=== PATIENT | female | born 1995 | race Caucasian/White ===

== ENCOUNTER → 2020-07-02 07:09 | Outpatient (CLI) | payer OTHER, SELFPAY ==
--- NOTE | 2020-07-02 07:12 | DI.US.S_ITS ---
PROCEDURE: US PELVIC COMPLETE INDICATIONS: ovarian cyst TECHNIQUE: Real-time scanning was performed of the pelvic organs, with image documentation. Additional endovaginal scanning was necessary due to incomplete visualization of the adnexal and endometrial structures by transabdominal scanning. COMPARISON: No prior studies are available for review at the time of this dictation. FINDINGS: Uterus: Uterus is normal in size at 7.9 x 3.6 x 4.8 cm. The endometrium measures 3 mm in combined thickness. Ovaries: The right ovary measures 3.2 x 2.3 x 2.2 cm and demonstrates a complex cyst that measures up to 1.9 cm. The left ovary measures 2.2 x 2 x 1.7 cm. The ovaries otherwise have a normal sonographic appearance. No adnexal masses are seen. Other: No pathologic free abdominal or pelvic fluid. IMPRESSION: 1.9 cm complex cyst seen involving the right ovary, which likely relates to resolving hemorrhagic cyst. At clinical discretion, a followup pelvic ultrasound could be considered in 6 weeks to assure resolution/ improvement. Dictated by: Misha Sloan M.D. on 07/02/2020 at 9:40 Approved by: Misha Sloan M.D. on 07/02/2020 at 9:41
[2020-07-02 10:00] LABS: Add Manual Diff / Slide Review NO; Basophils Absolute Auto 0 /uL (0-100); Basophils Percent Auto 0.7 % (0-2); Eosinophils Absolute Auto 100 /uL (0-450); Hematocrit 35.9 % (36-46); Hemoglobin 12.2 g/dL (12.0-16.0); Lymphocytes Absolute Auto 1100 /uL (1100-4500); Lymphocytes Percent Auto 34.9 % (25-40); Mean Corpuscular HGB Conc 33.9 % (30-36); Mean Corpuscular Hemoglobin 28.4 PG (26-34); Mean Corpuscular Volume 83.7 fL (80-100); Monocytes Absolute Auto 300 /uL (0-900); Neutrophils Absolute Auto 1600 /uL (1500-7000); Neutrophils Percent Auto 51.4 % (50-75); Platelet Count 204 X10^3/uL (150-400); Red Blood Cell Count 4.29 X10^6/uL (4.0-5.2); White Blood Cell Count 3.1 X10^3/uL (4.5-11.0)
[2020-07-02 10:31] LABS: Alanine Aminotransferase 24 IU/L (<35); Albumin 4.2 g/dL (3.5-5.0); Albumin Globulin Ratio 1.4 (1.0-2.8); Alkaline Phosphatase 61 U/L (38-126); Aspartate Aminotransferase 31 IU/L (14-36); Bilirubin Total 0.4 mg/dL (0.2-1.3); Bilirubin Unconjugated 0.4 mg/dL (0.0-1.1); Globulin 3.1 g/dL (1.7-4.1); HEMOLYSIS < 15 (0-50); Total Protein 7.3 g/dL (6.3-8.2)
== END ==
PROVIDERS: PCP Family Medicine; Referring Provider Family Medicine; Visit Provider Family Medicine
DX: N83.291 Other ovarian cyst, right side (principal); M32.9 Systemic lupus erythematosus, unspecified; D64.9 Anemia, unspecified
CPT/HCPCS: 36415; 76830; 76856; 80076; 85025

== ENCOUNTER → 2020-10-14 14:22 | Outpatient (CLI) | payer OTHER, SELFPAY ==
[2020-10-14 15:35] LABS: Appearance Urine UA CLEAR; Bilirubin Urine UA NEGATIVE (NEGATIVE); Color Urine UA YELLOW; Glucose Urine UA NEGATIVE (Negative); Ketones Urine UA NEGATIVE (NEGATIVE); Leukocyte Esterase Urine UA 2+ (NEGATIVE); Nitrite Urine UA NEGATIVE (Negative); Occult Blood Urine UA NEGATIVE (Negative); Protein Urine UA NEGATIVE (Negative); Specific Gravity Urine UA 1.015 (1.000-1.035); Urobilinogen Urine UA 0.2 E.U./dL (0.2)
[2020-10-14 15:37] LABS: Add Manual Diff / Slide Review NO; Basophils Absolute Auto 0 /uL (0-100); Basophils Percent Auto 0.6 % (0-2); Eosinophils Absolute Auto 0 /uL (0-450); Eosinophils Percent Auto 1.3 % (2-4); Hematocrit 34.7 % (36-46); Hemoglobin 11.7 g/dL (12.0-16.0); Lymphocytes Absolute Auto 1000 /uL (1100-4500); Lymphocytes Percent Auto 36.7 % (25-40); Mean Corpuscular HGB Conc 33.7 % (30-36); Mean Corpuscular Hemoglobin 27.6 PG (26-34); Monocytes Absolute Auto 300 /uL (0-900); Monocytes Percent Auto 10.8 % (3-14); Neutrophils Absolute Auto 1400 /uL (1500-7000); Neutrophils Percent Auto 50.6 % (50-75); Platelet Count 183 X10^3/uL (150-400); Red Blood Cell Count 4.23 X10^6/uL (4.0-5.2); Red Cell Distribution Width 13.6 % (11.6-14.8); White Blood Cell Count 2.8 X10^3/uL (4.5-11.0)
[2020-10-14 15:51] LABS: Bacteria Urine Moderate (10-30); RBC Urine 0-1/HPF (0-5/HPF); Squamous Epithelial Cell Urine 1-5 /HPF (0-5/HPF); Transitional Epi Cells Urine 1-5/HPF (0-5/HPF); WBC Urine 10-30/HPF (0-5/HPF)
[2020-10-14 16:21] LABS: Hepatitis B Surface Antigen NEGATIVE s/c (NEGATIVE); Rubella Antibody IgG 41.5 IU/mL (>15)
[2020-10-14 16:38] LABS: HIV 1 & 2 Ab/Ag 4th Gen Combo NEGATIVE (NEGATIVE); Hep C Virus Ab w/Reflex Quant NEGATIVE s/c (NEGATIVE)
[2020-10-15 07:46] LABS: RPR Screen Non Reactive (Non Reactive)
[2020-10-15 08:36] LABS: Varicella IgG Antibody 738 index (Immune >165)
== END ==
PROVIDERS: PCP Family Medicine; Referring Provider Specialist; Visit Provider Specialist
DX: Z34.81 Encounter for supervision of other normal pregnancy, first trimester (principal)
CPT/HCPCS: 36415; 80055; 81003; 81015; 86787; 86803; 86850; 86900; 86901; 87077; 87086; 87147; 87186; 87389

== ENCOUNTER → 2020-10-24 18:51 | Outpatient (ROUT) | payer OTHER, SELFPAY ==
[2020-10-24 21:39] LABS: Urine N gonorrhoeae NOT DETECTED
[2020-10-24 21:52] LABS: Urine Chlamydia NOT DETECTED
== END ==
PROVIDERS: PCP Family Medicine; Visit Provider Specialist
DX: Z34.81 Encounter for supervision of other normal pregnancy, first trimester (principal); Z3A.08 8 weeks gestation of pregnancy
CPT/HCPCS: 87491; 87591

== ENCOUNTER → 2020-11-21 12:15 | Outpatient (CLI) | payer OTHER, SELFPAY ==
[2020-11-21 14:13] LABS: Ferritin 44 ng/mL (6-137)
== END ==
PROVIDERS: PCP Family Medicine; Referring Provider Specialist; Visit Provider Specialist
DX: E61.1 Iron deficiency (principal)
CPT/HCPCS: 36415; 82728

== ENCOUNTER → 2020-11-27 17:03 | Outpatient (CLI) | payer OTHER, SELFPAY | PROVIDERS: PCP Family Medicine; Visit Provider Specialist | DX: Z34.81 Encounter for supervision of other normal pregnancy, first trimester (principal); Z3A.13 13 weeks gestation of pregnancy | CPT/HCPCS: 87086 ==

== ENCOUNTER → 2021-02-06 17:15 | Outpatient (CLI) | payer OTHER, SELFPAY ==
[2021-02-06 18:05] LABS: Add Manual Diff / Slide Review NO; Basophils Absolute Auto 0 /uL (0-100); Basophils Percent Auto 0.3 % (0-2); Eosinophils Absolute Auto 0 /uL (0-450); Eosinophils Percent Auto 0.8 % (2-4); Hematocrit 31.8 % (36-46); Lymphocytes Absolute Auto 1000 /uL (1100-4500); Lymphocytes Percent Auto 23.4 % (25-40); Mean Corpuscular HGB Conc 34.7 % (30-36); Mean Corpuscular Hemoglobin 29.5 PG (26-34); Mean Corpuscular Volume 85.1 fL (80-100); Monocytes Absolute Auto 400 /uL (0-900); Monocytes Percent Auto 8.3 % (3-14); Neutrophils Absolute Auto 3000 /uL (1500-7000); Neutrophils Percent Auto 67.2 % (50-75); Platelet Count 155 X10^3/uL (150-400); Red Blood Cell Count 3.74 X10^6/uL (4.0-5.2); White Blood Cell Count 4.4 X10^3/uL (4.5-11.0)
== END ==
PROVIDERS: PCP Family Medicine; Referring Provider Specialist; Visit Provider Specialist
DX: D64.9 Anemia, unspecified (principal)
CPT/HCPCS: 36415; 85025

== ENCOUNTER → 2021-03-04 12:28 | Outpatient (CLI) | payer OTHER, SELFPAY ==
[2021-03-04 14:38] LABS: Hematocrit 31.5 % (36-46); Hemoglobin 10.9 g/dL (12.0-16.0)
[2021-03-04 16:26] LABS: GTT (PREG) 1 Hour PP 50gm Dose 79 mg/dL (76-139)
== END ==
PROVIDERS: PCP Family Medicine; Referring Provider Specialist; Visit Provider Specialist
DX: Z34.82 Encounter for supervision of other normal pregnancy, second trimester (principal); Z3A.25 25 weeks gestation of pregnancy
CPT/HCPCS: 36415; 82950; 85014; 85018

== ENCOUNTER → 2021-04-02 12:35 | Outpatient (CLI) | payer OTHER, SELFPAY ==
[2021-04-02 13:23] LABS: Add Manual Diff / Slide Review NO; Basophils Absolute Auto 0 /uL (0-100); Basophils Percent Auto 0.2 % (0-2); Eosinophils Absolute Auto 100 /uL (0-450); Eosinophils Percent Auto 1.7 % (2-4); Hematocrit 33.7 % (36-46); Hemoglobin 11.7 g/dL (12.0-16.0); Lymphocytes Absolute Auto 1100 /uL (1100-4500); Lymphocytes Percent Auto 21.2 % (25-40); Mean Corpuscular HGB Conc 34.8 % (30-36); Mean Corpuscular Hemoglobin 29.4 PG (26-34); Mean Corpuscular Volume 84.6 fL (80-100); Monocytes Absolute Auto 400 /uL (0-900); Monocytes Percent Auto 7.6 % (3-14); Neutrophils Absolute Auto 3600 /uL (1500-7000); Neutrophils Percent Auto 69.3 % (50-75); Platelet Count 188 X10^3/uL (150-400); Red Blood Cell Count 3.99 X10^6/uL (4.0-5.2); Red Cell Distribution Width 13.6 % (11.6-14.8); White Blood Cell Count 5.2 X10^3/uL (4.5-11.0)
[2021-04-02 13:34] LABS: HEMOLYSIS < 15 (0-50); Iron 79 ug/dL (37-170)
[2021-04-02 13:36] LABS: Alanine Aminotransferase 12 IU/L (<35); Albumin 3.6 g/dL (3.5-5.0); Albumin Globulin Ratio 1.2 (1.0-2.8); Alkaline Phosphatase 70 U/L (38-126); Aspartate Aminotransferase 21 IU/L (14-36); Bilirubin Total 0.3 mg/dL (0.2-1.3); Blood Urea Nitrogen 7 mg/dL (7-17); Calcium 8.9 mg/dL (8.4-10.2); Carbon Dioxide 25 mmol/L (22-32); Chloride 106 mmol/L (98-107); Estimated Glomerular Filt Rate > 60.0 mL/min (>60); Globulin 3.1 g/dL (1.7-4.1); Glucose 79 mg/dL (70-100); HEMOLYSIS < 15 (0-50); Potassium 4.1 mmol/L (3.4-5.1); Sodium 136 mmol/L (137-145); Total Protein 6.7 g/dL (6.3-8.2)
[2021-04-02 13:47] LABS: Percent Iron Saturation 20 % (15-50); Total Iron Binding Capacity 400 ug/dL (265-497); Transferrin 286 mg/dL (206-381)
[2021-04-02 14:24] LABS: Vitamin B12 339 pg/mL (239-931)
[2021-04-02 16:36] LABS: Vitamin D 25 Hydroxy (D3) 82.8 ng/mL (30.0-100.0)
== END ==
PROVIDERS: PCP Family Medicine; Referring Provider Family Medicine; Visit Provider Family Medicine
DX: L60.9 Nail disorder, unspecified (principal)
CPT/HCPCS: 36415; 80053; 82306; 82607; 83540; 83550; 84443; 85025

== ENCOUNTER 2021-04-09 11:13 | Outpatient (CLI) | payer OTHER, SELFPAY ==
--- NOTE | 2021-04-09 12:38 | P.TNLD_ITS ---
Visit Information Visit Information Date of evaluation: 04/09/21 Primary OB Provider: Zarina Brandt On-call OB Provider: Rubi Myers Reason for Evaluation: Yes non-stress test Comments/Additional reasons for admission: Patient presents for scheduled testing at 32 weeks gestation for known placental cysts and a history of lupus. No obstetric or other complaints, ZULEMA 13. Vital Signs Vital Signs: [facility] Medical History Abnormal Pap smear of cervix (~2013) Anemia (~2019) Anxiety (~2015) Chest pain Fingernail abnormalities Foot pain (~2018) Headache (~2015) Hemorrhoid (~2015) Human papilloma virus (~2013) Leukopenia (~2015) Lupus (~2018) Migraines (~2018) Osteopenia (~2019) Ovarian cyst (~2019) Rheumatoid arthritis (~2017) Tendinitis of right triceps Surgical History History of section (~09/25/16) History of colposcopy (~2013) [place] teeth extracted (~2018) Family History Grandfather Lung cancer Stomach cancer Grandmother Fibromyalgia Grandfather History of heart artery stent Hyperlipidemia Hypertension Grandmother No problems noted. Mother No problems noted. Father No problems noted. Social History marital status: number of children: 1 household members: spouse and children lives independently: Yes caregiver/support person: No housing: house pets and animals: No education level: college (Some college, almost an AA. 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 ) current occupational exposures/hazards: No special rosmery needs: No seatbelt use: always do you feel safe at home: Yes Smoking Status: Never smoker second hand exposure: No alcohol intake: current (once or twice per year ) substance use type: does not use during the past year weight has: increased > 10 lbs well-balanced diet: daily or most days daily servings fruits/ve-4 caffeine: Yes (1/2 cup coffee daily. ) Type(s) of exercise: bicycling (Peloton cycling) and weight lifting frequency: 3-4 times per week duration: 30-45 minutes/day Evaluation Evaluation Baseline heart rate: 125 Variability: Moderate (11-25) monitor accelerations: Present Monitor Decelerations: Absent Category of Tracing: Reactive Status: Category l Diagnosis, Plan/Disposition Plan/Disposition Plan: Home with routine precautions. OB Disposition: home
== END 2021-04-09 11:45 | disposition home or self-care (01) ==
LOC: LABOR 11:15 → OB 04-13 14:41
PROVIDERS: PCP Family Medicine; Referring Provider Obstetrics & Gynecology; Visit Provider Obstetrics & Gynecology
DX: O43.193 Other malformation of placenta, third trimester (principal); O36.8130 Decreased fetal movements, third trimester, not applicable or unspecified; Z3A.32 32 weeks gestation of pregnancy; Z87.39 Personal history of other diseases of the musculoskeletal system and connective tissue
CPT/HCPCS: 59025; G0378; G0379

== ENCOUNTER 2021-04-13 18:41 | Outpatient (CLI) | payer OTHER, SELFPAY | END 2021-04-13 20:14 | disposition home or self-care (01) | LOC: OB 04-14 10:32 | PROVIDERS: PCP Family Medicine; Referring Provider Obstetrics & Gynecology; Visit Provider Obstetrics & Gynecology | DX: O36.8130 Decreased fetal movements, third trimester, not applicable or unspecified (principal); Z3A.32 32 weeks gestation of pregnancy | CPT/HCPCS: 59025; G0378; G0379 ==

== ENCOUNTER 2021-04-24 15:02 | Outpatient (CLI) | payer OTHER, SELFPAY ==
--- NOTE | 2021-04-24 16:04 | P.TNLD_ITS ---
Visit Information Visit Information Date of evaluation: 04/24/21 Primary OB Provider: Zarina Brandt Reason for Evaluation: Yes non-stress test non-stress test reason: other (Large placental cysts near cord insertion) [facility] Medical History Abnormal Pap smear of cervix (~2013) Anemia (~2019) Anxiety (~2015) Chest pain Fingernail abnormalities Foot pain (~2018) Headache (~2015) Hemorrhoid (~2016) Human papilloma virus (~2013) Leukopenia (~2015) Lupus (~2018) Migraines (~2018) Osteopenia (~2019) Ovarian cyst (~2019) Rheumatoid arthritis (~2017) Tendinitis of right triceps Surgical History History of section (~09/25/16) History of colposcopy (~2013) [place] teeth extracted (~2018) Family History Grandfather Lung cancer Stomach cancer Grandmother Fibromyalgia Grandfather History of heart artery stent Hyperlipidemia Hypertension Grandmother No problems noted. Mother No problems noted. Father No problems noted. Social History marital status: number of children: 1 household members: spouse and children lives independently: Yes caregiver/support person: No housing: house pets and animals: No education level: college (Some college, almost an AA. 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 ) current occupational exposures/hazards: No special rosmery needs: No seatbelt use: always do you feel safe at home: Yes Smoking Status: Never smoker second hand exposure: No alcohol intake: current (once or twice per year ) substance use type: does not use during the past year weight has: increased > 10 lbs well-balanced diet: daily or most days daily servings fruits/ve-4 caffeine: Yes (1/2 cup coffee daily. ) Type(s) of exercise: bicycling (Peloton cycling) and weight lifting frequency: 3-4 times per week duration: 30-45 minutes/day Evaluation Evaluation Baseline heart rate: 130 Variability: Moderate (11-25) monitor accelerations: Present Monitor Decelerations: Absent Contraction Frequency (minutes): 0 Diagnosis, Plan/Disposition Final Diagnosis (1) Placental cyst affecting in third trimester: Status: Acute Problem details: 7 cm and a 2nd 4 cm (2) 34 weeks gestation of : Status: Acute Plan/Disposition Plan: Reactive nonstress test. Patient is getting weekly nonstress test. She is being [facility] with the [facility]. OB Disposition: home
== END 2021-04-24 16:05 | disposition home or self-care (01) ==
LOC: LABOR 15:24 → OB 04-29 11:56
PROVIDERS: PCP Family Medicine; Referring Provider Specialist; Visit Provider Specialist
DX: O43.193 Other malformation of placenta, third trimester (principal); Z3A.34 34 weeks gestation of pregnancy
CPT/HCPCS: 59025; G0378; G0379

== ENCOUNTER 2021-05-05 16:19 | Outpatient (CLI) | payer OTHER, SELFPAY | END 2021-05-05 17:15 | disposition home or self-care (01) | LOC: OB 05-06 13:11 | PROVIDERS: PCP Family Medicine; Referring Provider Specialist; Visit Provider Specialist | DX: O43.193 Other malformation of placenta, third trimester (principal); O26.893 Other specified pregnancy related conditions, third trimester; Z3A.36 36 weeks gestation of pregnancy | CPT/HCPCS: 59025; G0378; G0379 ==

== ENCOUNTER → 2021-09-17 14:51 | Outpatient (CLI) | payer OTHER, SELFPAY ==
--- NOTE | 2021-09-17 14:53 | DI.RAD.S_ITS ---
PROCEDURE: XR RIBS RT MIN 3V W CXR 1V INDICATIONS: rib pain TECHNIQUE: 2 views of the right ribs were acquired, along with a single view chest. COMPARISON: None. FINDINGS: Surgical changes and devices: None. Bones and chest wall: No acute displaced rib fracture. No suspicious bony lesions. Overlying soft tissues appear unremarkable. Lungs and pleura: No pleural effusions or pneumothorax. Lungs appear clear. Mediastinum: Mediastinal contours appear normal. Heart size is normal. IMPRESSION: No acute displaced rib fracture. No pneumothorax. Dictated by: Modesto Gonzalez M.D. on 09/17/2021 at 15:43 Approved by: Modesto Gonzalez M.D. on 09/17/2021 at 15:45
== END ==
PROVIDERS: PCP Family Medicine; Referring Provider Nurse Practitioner Family; Visit Provider Nurse Practitioner Family
DX: R07.81 Pleurodynia (principal)
CPT/HCPCS: 71101

== ENCOUNTER → 2022-05-18 15:17 | Outpatient (CLI) | payer OTHER, SELFPAY ==
[2022-05-18 16:20] LABS: Influenza A - CEPHEID Flu A NEGATIVE (NEGATIVE); Influenza B - CEPHEID Flu B NEGATIVE (NEGATIVE); Respiratory Syncytial Virus Negative (Negative)
[2022-05-18 16:21] LABS: COVID-19 CEPHEID 4-PLEX PCR Negative (Negative)
== END ==
PROVIDERS: PCP Family Medicine; Visit Provider Nurse Practitioner Family
DX: R05.9 Cough, unspecified (principal); R09.81 Nasal congestion
CPT/HCPCS: 0241U

== ENCOUNTER 2022-10-22 14:07 | Emergency (ER) | payer OTHER, SELFPAY ==
[2022-10-22 14:09] VITALS: BP 120/81; PULSE 67; RESP 17; TEMP 36.9; O2SAT 100; BMI 26.8
--- NOTE | 2022-10-22 14:17 | DI.RAD.S_ITS ---
PROCEDURE: XR CHEST 1V INDICATIONS: chest pain TECHNIQUE: One view of the chest was acquired. COMPARISON: None. FINDINGS: Surgical changes and devices: None. Lungs and pleura: Lungs are clear. No pleural effusions or pneumothorax. Mediastinum: Mediastinal contours appear normal. Heart size is normal. Bones and chest wall: No suspicious bony lesions. Overlying soft tissues appear unremarkable. IMPRESSION: No acute cardiopulmonary process. Dictated by: Gabino Gillis M.D. on 10/22/2022 at 15:18 Approved by: Gabino Gillis M.D. on 10/22/2022 at 15:18
[2022-10-22 14:42] LABS: INR 1.1 (0.9-1.3); Prothrombin Time 12.9 SECONDS (10.1-12.7)
[2022-10-22 14:45] LABS: PTT Partial Thromboplastin Tim 35 SECONDS (26-36)
[2022-10-22 14:49] LABS: Add Manual Diff / Slide Review NO; Basophils Absolute Auto 0 /uL (0-100); Basophils Percent Auto 1.2 % (0-2); Eosinophils Absolute Auto 100 /uL (0-450); Eosinophils Percent Auto 2.1 % (2-4); Hematocrit 36.4 % (36-46); Hemoglobin 12.3 g/dL (12.0-16.0); Lymphocytes Absolute Auto 1000 /uL (1100-4500); Lymphocytes Percent Auto 33.7 % (25-40); Mean Corpuscular HGB Conc 33.9 % (30-36); Mean Corpuscular Hemoglobin 27.2 PG (26-34); Mean Corpuscular Volume 80.1 fL (80-100); Monocytes Absolute Auto 200 /uL (0-900); Monocytes Percent Auto 8.1 % (3-14); Neutrophils Absolute Auto 1600 /uL (1500-7000); Neutrophils Percent Auto 54.9 % (50-75); Platelet Count 198 X10^3/uL (150-400); Red Blood Cell Count 4.54 X10^6/uL (4.0-5.2); Red Cell Distribution Width 14.8 % (11.6-14.8)
[2022-10-22 14:50] LABS: Alanine Aminotransferase 23 IU/L (<35); Albumin 4.6 g/dL (3.5-5.0); Alkaline Phosphatase 56 U/L (38-126); Aspartate Aminotransferase 27 IU/L (14-36); BUN Creatinine Ratio 14.1 (6-22); Bilirubin Total 0.5 mg/dL (0.2-1.3); Blood Urea Nitrogen 10 mg/dL (7-17); C-Reactive Protein Quant < 0.5 mg/dL (<1.0); Calcium 9.2 mg/dL (8.4-10.2); Carbon Dioxide 28 mmol/L (22-32); Chloride 104 mmol/L (98-107); Creatine Kinase 68 U/L (30-135); Estimated Glomerular Filt Rate > 60 mL/min (>60); Globulin 3.7 g/dL (1.7-4.1); Glucose 62 mg/dL (70-100); HEMOLYSIS < 15 (0-50); Magnesium 1.9 mg/dL (1.6-2.3); Potassium 4.1 mmol/L (3.4-5.1); Sodium 140 mmol/L (137-145); Total Protein 8.3 g/dL (6.3-8.2)
[2022-10-22 14:51] LABS: Albumin Globulin Ratio 1.2 (1.0-2.8); Lipase 88 U/L (23-300)
[2022-10-22 14:54] LABS: Erythrocyte Sedimentation Rate 15 MM/HR (0-20)
[2022-10-22 14:59] LABS: Troponin I < 0.012 ng/mL (0.01-0.034)
--- NOTE | 2022-10-22 18:25 | ED_ITS ---
HPI - Back Pain/Injury General Chief Complaint: Back Pain/Injury Stated Complaint: Upper back/neck pain, chest pain, lupus Time Seen by Provider: 10/22/22 18:05 Source: patient Mode of arrival: Ambulatory Limitations: no limitations History of Present Illness HPI Narrative: 27-year-old female. History of lupus. Also has a history of myocarditis in 2019. Is here for evaluation of proximally 1 week of upper back pain that extends up to the back of her neck and is also causing a headache. She also then had some chest pain earlier today which is now resolved. She is also feeling very fatigued. No shortness of breath. No abdominal pain. No urinary symptoms. Related Data Home Medications Medication Instructions Recorded Confirmed calcium citrate 200 mg (950 mg) 400 mg PO ONCE 09/17/21 05/18/22 tablet Previous Rx's Medication Instructions Recorded hydroxychloroquine 200 mg tablet 200 mg PO DAILY #90 tabs 09/03/20 cyclobenzaprine 10 mg tablet 10 mg PO TID PRN muscle spasm #20 10/22/22 tabs Allergies Allergy/AdvReac Type Severity Reaction Status Date / Time diphtheria,pertussis AdvReac Facial Verified 10/22/22 14:09 (acellular),te drooping [From Adacel(Tdap Adolesn/Adult)(PF)] Review of Systems Review of Systems ROS Unobtainable: All systems reviewed & are unremarkable except as noted in HPI and below Patient History Medical History Abnormal Pap smear of cervix (~2013) Anemia (~2019) Anxiety (~2015) Chest pain Costochondritis Eye exam due to high risk medication, encounter for Fingernail abnormalities Foot pain (~2018) Headache (~2015) Hemorrhoid (~2016) Human papilloma virus (~2013) Leukopenia (~2016) Lupus (~2018) Migraines (~2019) Osteopenia (~2019) Ovarian cyst (~2019) Rheumatoid arthritis (~2018) Skin tag Tendinitis of right triceps Well adult Surgical History History of section (~09/25/16) History of colposcopy (~2013) [place] teeth extracted (~2018) Family History Grandfather Lung cancer Stomach cancer Grandmother Fibromyalgia Grandfather History of heart artery stent Hyperlipidemia Hypertension Grandmother No problems noted. Mother No problems noted. Father No problems noted. Social History marital status: number of children: 1 household members: spouse and children lives independently: Yes caregiver/support person: No housing: house pets and animals: No education level: college (Some college, almost an AA. 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 ) current occupational exposures/hazards: No special rosmery needs: No seatbelt use: always do you feel safe at home: Yes Smoking Status: Never smoker second hand exposure: No alcohol intake: current (once or twice per year ) substance use type: does not use during the past year weight has: increased > 10 lbs well-balanced diet: daily or most days daily servings fruits/ve-4 caffeine: Yes (1/2 cup coffee daily. ) Type(s) of exercise: bicycling (Peloton cycling) and weight lifting frequency: 3-4 times per week duration: 30-45 minutes/day Smoking Status: Never smoker alcohol intake frequency: holidays/special occasions only Substance Use Type: does not use Exam Initial Vital Signs Initial Vital Signs: Vital Signs Temperature 98.5 F 10/22/22 14:09 Pulse Rate 67 10/22/22 14:09 Respiratory Rate 17 10/22/22 14:09 Blood Pressure 120/81 10/22/22 14:09 Pulse Oximetry 100 10/22/22 14:09 Oxygen Delivery Method Room Air 10/22/22 14:09 HENMT Head: normal to inspection and normocephalic Resp Effort & Inspection: normal respiratory effort Auscultation: clear to auscultation bilaterally Cardio Rate: regular rate Rhythm: regular rhythm GI Inspection: normal to inspection Palpation: soft Back/Spine/Pelvis Cervical Spine: No cervical spinal tenderness Thoracic/Lumbar Spine: paraspinal tenderness and No thoracic spinal tenderness Skin General: no rashes or lesions noted Neuro General: patient alert, patient awake and moves all extremities Extrem General: capillary refill normal Scores HEART Score Heart Score history: Slightly Suspicious Heart Score EKG: Normal Heart Score Age: < 45 years old Heart Score risk factors: No known risk factors Heart Score troponin: < or = to normal limit Heart Score Total: 0 Course Orders Ordered: Discontinued Medications Aspirin (Aspirin 81 Mg Chew Tab) 324 mg PO NOW ONE Stop: 10/22/22 14:18 Last Admin: 10/22/22 14:44 Dose: Not Given Documented By: FRIDA Vital Signs Vital signs: Vital Signs - 8 hr 10/22/22 18:56 Pulse Rate 65 Respiratory Rate 16 Blood Pressure 118/75 Pulse Oximetry 97 Oxygen Delivery Method Room Air MDM - Back Pain/Injury Lab Data Attestation: I reviewed the patient's lab results. 10/22/22 14:24 10/22/22 14:24 Labs: Lab Results 10/22/22 10/22/22 10/22/22 Range/Units 14:24 14:24 14:24 WBC 3.0 L (4.5-11.0) X10^3/uL RBC 4.54 (4.0-5.2) X10^6/uL Hgb 12.3 (12.0-16.0) g/dL Hct 36.4 (36-46) % MCV 80.1 (80-100) fL MCH 27.2 (26-34) PG MCHC 33.9 (30-36) % RDW 14.8 (11.6-14.8) % Plt Count 198 (150-400) X10^3/uL Neut % (Auto) 54.9 (50-75) % Lymph % (Auto) 33.7 (25-40) % Gordon % (Auto) 8.1 (3-14) % Eos % (Auto) 2.1 (2-4) % Baso % (Auto) 1.2 (0-2) % Neut # (Auto) 1600 (6720-4850) /uL Lymph # (Auto) 1000 L (2754-2227) /uL Gordon # (Auto) 200 (0-900) /uL Eos # (Auto) 100 (0-450) /uL Baso # (Auto) 0 (0-100) /uL ESR 15 (0-20) MM/HR PT 12.9 H (10.1-12.7) SECONDS INR 1.1 (0.9-1.3) APTT 35 (26-36) SECONDS Sodium 140 (137-145) mmol/L Potassium 4.1 (3.4-5.1) mmol/L Chloride 104 (98-107) mmol/L Carbon Dioxide 28 (22-32) mmol/L BUN 10 (7-17) mg/dL Creatinine 0.71 (0.52-1.04) mg/dL Estimated GFR > 60 (>60) mL/min BUN/Creatinine Ratio 14.1 (6-22) Glucose 62 L (70-100) mg/dL Calcium 9.2 (8.4-10.2) mg/dL Magnesium 1.9 (1.6-2.3) mg/dL Total Bilirubin 0.5 (0.2-1.3) mg/dL AST 27 (14-36) IU/L ALT 23 (<35) IU/L Alkaline Phosphatase 56 (38-126) U/L Total Creatine Kinase 68 (30-135) U/L Troponin I < 0.012 (0.01-0.034) ng/mL C-Reactive Protein < 0.5 (<1.0) mg/dL Total Protein 8.3 H (6.3-8.2) g/dL Albumin 4.6 (3.5-5.0) g/dL Globulin 3.7 (1.7-4.1) g/dL Albumin/Globulin Ratio 1.2 (1.0-2.8) Lipase 88 (23-300) U/L Point of Care Testing Test Results Negative Urine Dip Bedside Urine Glucose Negative Bedside Urine Bilirubin - Negative Bedside Urine Ketone - Negative Urine Specific [place] 1.005 Bedside Urine Occult Blood - Negative Bedside Urine pH 6.0 Bedside Urine Protein - Negative Bedside Urine Urobilinogen - Negative Bedside Urine Nitrite - Negative Bedside Urine Leukocytes - Negative Esterase Imaging Data Chest x-ray: Radiologist's Impression: PROCEDURE:? XR CHEST 1V ? INDICATIONS:? chest pain ? TECHNIQUE:? One view of the chest was acquired.? ? COMPARISON:? None. ? FINDINGS:? ? Surgical changes and devices:? None.? ? Lungs and pleura:? Lungs are clear.? No pleural effusions or pneumothorax.? ? Mediastinum:? Mediastinal contours appear normal.? Heart size is normal.? ? Bones and chest wall:? No suspicious bony lesions.? Overlying soft tissues appear unremarkable.? ? IMPRESSION:? No acute cardiopulmonary process. ECG Data Attestation: I personally reviewed and interpreted this ECG as follows: Interpretation: Sinus rhythm Ventricular rate is 61 Normal axis Normal QRS Normal QTC No ST T wave changes MDM Narrative Medical decision making narrative: Benign history. Benign physical. Labs unremarkable. EKG is unremarkable. Low risk heart score. Chest x-ray is unremarkable. There is no indication of myocarditis. Low suspicion for ACS. I do have a high suspicion that this is musculoskeletal in origin given the location in her upper back extending into back of her neck. Will treat with muscle relaxers and other symptomatic treatment for now. She was given return precautions. She expressed understan ding and agreement. Discharge Plan Departure Patient Disposition: Home Clinical Impression: Acute thoracic back pain, Atypical chest pain Instructions: DI for Atypical Chest Pain, DI for Thoracic Back Pain Activity Restrictions/Additional Instructions: I do recommend that you keep all of your scheduled medical appointments. Continue to take all of your medications as directed. Return to the emergency department for new or worsening symptoms. Prescriptions: New cyclobenzaprine 10 mg tablet 10 mg PO TID PRN (Reason: muscle spasm) Qty: 20 0RF No Action hydroxychloroquine 200 mg tablet 200 mg PO DAILY Qty: 90 1RF calcium citrate 200 mg (950 mg) tablet 400 mg PO ONCE Referrals: Erwin Jeter DO [Primary Care Provider] - Stand Alone Forms: Patient Portal/API
--- NOTE | 2022-10-22 18:55 | PC.NURSE ---
seen and assessed by MD without RN involvement
[2022-10-22 18:56] VITALS: BP 118/75; PULSE 65; RESP 16; O2SAT 97
== END 2022-10-22 18:56 | disposition home or self-care (01) ==
PROVIDERS: Emergency Medicine; Emergency Provider Emergency Medicine; PCP Family Medicine
DX: R07.89 Other chest pain (principal); M54.6 Pain in thoracic spine; R51.9 Headache, unspecified
CPT/HCPCS: 36415; 71045; 80053; 81003; 81025; 82550; 83690; 83735; 84484; 85025; 85610; 85651; 85730; 86140; 93005; 99283; 99284

== ENCOUNTER → 2023-02-08 13:49 | Outpatient (CLI) | payer OTHER, SELFPAY ==
[2023-02-08 17:33] LABS: Urine N gonorrhoeae NOT DETECTED
[2023-02-08 17:47] LABS: Urine Chlamydia NOT DETECTED
== END ==
PROVIDERS: PCP Family Medicine; Visit Provider Obstetrics & Gynecology
DX: Z34.81 Encounter for supervision of other normal pregnancy, first trimester (principal); Z3A.08 8 weeks gestation of pregnancy
CPT/HCPCS: 87491; 87591

== ENCOUNTER → 2023-02-21 11:40 | Outpatient (CLI) | payer OTHER, SELFPAY ==
[2023-02-21 12:35] LABS: Add Manual Diff / Slide Review NO; Basophils Absolute Auto 0 /uL (0-100); Basophils Percent Auto 0.7 % (0-2); Eosinophils Absolute Auto 0 /uL (0-450); Eosinophils Percent Auto 1.7 % (2-4); Hematocrit 32.6 % (36-46); Hemoglobin 11.2 g/dL (12.0-16.0); Lymphocytes Absolute Auto 800 /uL (1100-4500); Lymphocytes Percent Auto 33.4 % (25-40); Mean Corpuscular HGB Conc 34.3 % (30-36); Mean Corpuscular Volume 81.5 fL (80-100); Monocytes Absolute Auto 200 /uL (0-900); Neutrophils Absolute Auto 1300 /uL (1500-7000); Neutrophils Percent Auto 54.2 % (50-75); Platelet Count 164 X10^3/uL (150-400); Red Cell Distribution Width 14.3 % (11.6-14.8); White Blood Cell Count 2.4 X10^3/uL (4.5-11.0)
[2023-02-21 13:02] LABS: Alanine Aminotransferase 20 IU/L (<35); Aspartate Aminotransferase 28 IU/L (14-36); BUN Creatinine Ratio 13.5 (6-22); Blood Urea Nitrogen 7 mg/dL (7-17); Estimated Glomerular Filt Rate > 60 mL/min (>60); Uric Acid 2.1 mg/dL (2.5-6.2)
[2023-02-21 15:23] LABS: Hepatitis B Surface Antigen NEGATIVE s/c (NEGATIVE); Rubella Antibody IgG 38.7 IU/mL (>15)
[2023-02-21 15:40] LABS: HIV 1 & 2 Ab/Ag 4th Gen Combo NEGATIVE (NEGATIVE); Hep C Virus Ab w/Reflex Quant NEGATIVE s/c (NEGATIVE)
[2023-02-22 10:02] LABS: RPR Screen Non Reactive (Non Reactive); Varicella IgG Antibody 576 index (Immune >165)
== END ==
PROVIDERS: PCP Family Medicine; Referring Provider Obstetrics & Gynecology; Visit Provider Obstetrics & Gynecology
DX: Z34.81 Encounter for supervision of other normal pregnancy, first trimester (principal); M32.9 Systemic lupus erythematosus, unspecified; O09.291 Supervision of pregnancy with other poor reproductive or obstetric history, first trimester
CPT/HCPCS: 36415; 80055; 82565; 84450; 84460; 84520; 84550; 86787; 86803; 86850; 86900; 86901; 87086; 87389

== ENCOUNTER 2023-04-07 13:45 | Outpatient (CLI) | payer OTHER, SELFPAY ==
--- NOTE | 2023-04-07 13:53 | DI.US.S_ITS ---
PROCEDURE: US OB TRANSVAGINAL INDICATIONS: vag bleeding 17 weeks OUTSIDE/PRIOR DATING DATA: Last menstrual period (LMP): December 10, 2022. LMP-based estimated date of delivery (KASSIE): September 16, 2023. First dating scan (date and location): February 08, 2023. Estimated date of delivery (KASSIE) from first dating scan: September 15, 2023. The calculations are made using the LMP KASSIE of September 16, 2023. TECHNIQUE: Real-time scanning was performed of the fetus, with image documentation. Endovaginal scanning: Endovaginal scanning was performed. COMPARISON: None. FINDINGS: A single living intrauterine gestation is present. Presentation: Vertex. Placenta: Placental position is anterior and left fundal, without previa. Amniotic fluid index: Visibly adequate for early gestation. heart rate: 139 beats per minute. Maternal cervical canal: 3.6 cm long. Normal lower limit is 2.5 cm. Clinically estimated gestational age: 16 weeks and 6 days Estimated gestational age from initial scan: Not applicable. Other findings: There is abnormal, moderate subchorionic hemorrhage with associated vascularity. There is also abnormal appearance of the placenta with nonvascular heterogeneous component which may represent a placental hemorrhage/clot. The patient was tender over this region during imaging evaluation. Fluid/debris is noted adjacent to the internal cervical os. No evidence for funneling of the internal cervical os or cervical canal. IMPRESSION: Single living intrauterine gestation with estimated gestational age of approximately 16 weeks and 6 days based off last menstrual period. Abnormal subchorionic hemorrhage with associated vascularity is highly suspicious for placental abruption. Additionally, abnormal appearance of the placenta with heterogeneous intraplacental component which is suspicious for placental hemorrhage/hematoma. Findings and images were reviewed and discussed in person with Dr. Gilbert. Dictated by: Franky Latif M.D. on 04/07/2023 at 15:43 Approved by: Franky Latif M.D. on 04/07/2023 at 16:19
== END 2023-04-07 15:16 | disposition home or self-care (01) ==
LOC: LABOR 14:24 → OB 04-12 08:53
PROVIDERS: PCP Family Medicine; Referring Provider Obstetrics & Gynecology; Visit Provider Obstetrics & Gynecology
DX: O20.9 Hemorrhage in early pregnancy, unspecified (principal); Z3A.16 16 weeks gestation of pregnancy
CPT/HCPCS: 76816; 76817; G0378; G0379

== ENCOUNTER 2023-06-19 14:48 | Observation (INO) | payer OTHER, SELFPAY | END 2023-06-19 17:20 | disposition home or self-care (01) | PROVIDERS: Admitting Provider Obstetrics & Gynecology; PCP Family Medicine; Referring Provider Obstetrics & Gynecology; Visit Provider Obstetrics & Gynecology | DX: O60.02 Preterm labor without delivery, second trimester (principal); Z3A.27 27 weeks gestation of pregnancy | CPT/HCPCS: 59025; 59050; G0378; G0379 ==

== ENCOUNTER → 2023-06-20 10:42 | Outpatient (CLI) | payer OTHER, SELFPAY ==
[2023-06-20 12:54] LABS: Hematocrit 33.2 % (36-46); Hemoglobin 11.7 g/dL (12.0-16.0)
[2023-06-20 13:16] LABS: GTT (PREG) 1 Hour PP 50gm Dose 51 mg/dL (76-139)
== END ==
LOC: LAB 10:43
PROVIDERS: PCP Family Medicine; Referring Provider Obstetrics & Gynecology; Visit Provider Obstetrics & Gynecology
DX: Z34.82 Encounter for supervision of other normal pregnancy, second trimester (principal); Z3A.26 26 weeks gestation of pregnancy
CPT/HCPCS: 36415; 82950; 85014; 85018

== ENCOUNTER 2023-07-28 01:08 | Observation (INO) | payer OTHER, SELFPAY ==
--- NOTE | 2023-07-28 01:36 | DI.US.S_ITS ---
PROCEDURE: US OB LIMITED INDICATIONS: vaginal bleeding OUTSIDE/PRIOR DATING DATA: Last menstrual period (LMP): 12/10/2022. LMP-based estimated date of delivery (KASSIE): 09/16/2023. First dating scan (date and location): 02/08/2023. Estimated date of delivery (KASSIE) from first dating scan: 09/15/2023. The calculations are made using the clinical KASSIE of 09/16/2023. TECHNIQUE: Real-time scanning was performed of the fetus, with image documentation. Endovaginal scanning: Not performed COMPARISON: [facility], , US OB >= 14 WEEKS FETUS, 07/06/2023, 11:40. FINDINGS: A single living intrauterine gestation is present. Presentation: Vertex. Placenta: Placental position is fundal, without previa. Placenta is within normal limits. Amniotic fluid index: 16.6 cm, normal range is 5-24 cm. Single deepest vertical pocket is 8.5 cm. heart rate: 145 beats per minute. Maternal cervical canal: 2.6 cm long. Normal lower limit is 2.5 cm. Clinically estimated gestational age: 32 weeks, 6 days IMPRESSION: 1. Single live intrauterine consistent with 32 weeks and 6 days. 2. Placenta is within normal limits. 3. Cervical canal is at the lower limits of normal measuring 2.6 cm. Dictated by: Claudio Yadav M.D. on 07/28/2023 at 1:57 Approved by: Claudio Yadav M.D. on 07/28/2023 at 1:59
[2023-07-28 01:49] LABS: Add Manual Diff / Slide Review NO; Basophils Absolute Auto 0 /uL (0-100); Basophils Percent Auto 0.5 % (0-2); Eosinophils Absolute Auto 100 /uL (0-450); Eosinophils Percent Auto 2.3 % (2-4); Hemoglobin 11.5 g/dL (12.0-16.0); Lymphocytes Absolute Auto 1200 /uL (1100-4500); Lymphocytes Percent Auto 19.6 % (25-40); Mean Corpuscular HGB Conc 34.9 % (30-36); Mean Corpuscular Hemoglobin 29.1 PG (26-34); Mean Corpuscular Volume 83.4 fL (80-100); Monocytes Absolute Auto 600 /uL (0-900); Monocytes Percent Auto 9.5 % (3-14); Neutrophils Absolute Auto 4300 /uL (1500-7000); Neutrophils Percent Auto 68.1 % (50-75); Platelet Count 186 X10^3/uL (150-400); Red Blood Cell Count 3.95 X10^6/uL (4.0-5.2); Red Cell Distribution Width 14.1 % (11.6-14.8); White Blood Cell Count 6.3 X10^3/uL (4.5-11.0)
--- NOTE | 2023-07-28 02:41 | PM.OBTRLD ---
Visit Information Visit Information Date of evaluation: 07/28/23 Primary OB Provider: Vane Gilbert On-call OB Provider: Damián Corral Reason for Evaluation: Yes other Comments/Additional reasons for admission: 28-year-old at [place] 32+6 weeks presenting for vaginal bleeding. Began experiencing moderate vaginal bleeding at approximately 11:00 p.m. last night. Noticed a large amount running down both of her legs. Put on a pad and soaked through it and about 20 minutes. Called L&D and also advised to present to [facility] where she lived but patient drove here. She endorses normal movement, slightly more active than typical. She does note some mild cramping but no strong contractions. No recent fall or trauma, however she did have intercourse with her earlier this evening. She did have persistent vaginal bleeding earlier this between 16-20 weeks gestation and an ultrasound at [place] 16+6 was notable for subchorionic hemorrhage with associated vascularity that was suspicious for partial abruption. Subsequent ultrasounds performed by [facility] did not note any specific placental abnormalities. complicated by maternal lupus on hydroxychloroquine 200 mg and ASA 81 mg daily, history of bleeding in 1st and 2nd trimester this , LGA biometry (EFW > 99%, AC 99%), history of labor with delivery at 27 weeks gestation, history of x2. She has been co-followed by [facility] since 19 weeks of and was planning scheduled repeat at in [place] at 39 weeks. [facility] Medical History (Updated 07/28/23 @ 03:08 by Damián Corral MD) Myocarditis labor Pain in female genitalia on intercourse Rheumatoid arthritis (~2017) Skin tag Costochondritis Eye exam due to high risk medication, encounter for Fingernail abnormalities Tendinitis of right triceps Foot pain (~2018) Ovarian cyst (~2019) Migraine headache Anxiety (~2015) Leukopenia (~2015) Chest pain Human papilloma virus (~2013) Abnormal Pap smear of cervix (~2013) Hemorrhoid (~2015) Surgical History (Updated 07/06/23 @ 22:59 by Vane Gilbert MD) Delivery by section (~05/13/21) History of colposcopy (~2013) [place] teeth extracted (~2018) History of section (~09/25/16) Family History (Updated 01/25/23 @ 10:50 by Vibha Calle RN) Grandfather Lung cancer Stomach cancer Grandmother Fibromyalgia Grandfather History of heart artery stent Hyperlipidemia Hypertension Grandmother No problems noted. Mother Fibrocystic breast disease Father No problems noted. Sister Depression Chronic pain Social History marital status: number of children: 2 household members: spouse and children lives independently: Yes caregiver/support person: Yes housing: [facility] ([place] [facility]) pets and animals: No education level: college (Associate's degree) occupational status: previously employed current occupational exposures/hazards: No special rosmery needs: No travel history: over 6 months ago other: Will be moving to [place] in June seatbelt use: always helmet use: Yes water heater temp set < 120 deg: Yes working smoke detector in home: Yes fire extinguisher in home: Yes carbon monox detector in home: Yes firearms in home: Yes firearms unloaded and locked: Yes do you feel safe at home: Yes Smoking Status: Never smoker second hand exposure: No alcohol intake: former (very rarely when not ) substance use type: does not use during the past year weight has: other (back to pre-baby weight) well-balanced diet: daily or most days daily servings fruits/ve-4 caffeine: Yes (1/2-1 cup coffee daily. ) Type(s) of exercise: weight lifting and yoga frequency: 3-4 times per week duration: 30-45 minutes/day Review of Systems Review of Systems ROS: Yes All systems reviewed with the patient and are negative except as otherwise documented Exam Narrative Exam Narrative: General: Well-nourished, no distress HEENT: NC/AT, EOMI, moist mucous membranes CV: RRR, normal S1 S2, no m/g/r Resp: CTAB Abd: Gravid, soft, NTND, +BS : Normal external female genitalia, vaginal mucosa pink and moist, moderate amount of laura red blood in vagina, no evidence of trauma or lacerations, bright red blood oozing from cervical os which is visually closed Ext: Full ROM, no edema Skin: No rash or lesions Neuro: A&O x3, normal tone, no focal deficits Objective Imaging US - OB Limited: Radiologist's impression: INDICATIONS: vaginal bleeding OUTSIDE/PRIOR DATING DATA: Last menstrual period (LMP): 12/10/2022. LMP-based estimated date of delivery (KASSIE): 09/16/2023. First dating scan (date and location): 02/08/2023. Estimated date of delivery (KASSIE) from first dating scan: 09/15/2023. The calculations are made using the clinical KASSIE of 09/16/2023. TECHNIQUE: Real-time scanning was performed of the fetus, with image documentation. Endovaginal scanning: Not performed COMPARISON: [place] [facility], [place], US OB >= 14 WEEKS FETUS, 07/06/2023, 11:40. FINDINGS: A single living intrauterine gestation is present. Presentation: Vertex. Placenta: Placental position is fundal, without previa. Placenta is within normal limits. Amniotic fluid index: 16.6 cm, normal range is 5-24 cm. Single deepest vertical pocket is 8.5 cm. heart rate: 145 beats per minute. Maternal cervical canal: 2.6 cm long. Normal lower limit is 2.5 cm. Clinically estimated gestational age: 32 weeks, 6 days IMPRESSION: 1. Single live intrauterine consistent with 32 weeks and 6 days. 2. Placenta is within normal limits. 3. Cervical canal is at the lower limits of normal measuring 2.6 cm. Dictated by: Claudio Yadav M.D. on 07/28/2023 at 1:57 Approved by: Claudio Yadav M.D. on 07/28/2023 at 1:59 Labs 07/28/23 01:15 07/28/23 02:42 Labs: Laboratory Results - last 24 hr 07/28/23 07/28/23 00:15 01:15 WBC 6.3 RBC 3.95 L Hgb 11.5 L Hct 33.0 L MCV 83.4 MCH 29.1 MCHC 34.9 RDW 14.1 Plt Count 186 Neut % (Auto) 68.1 Lymph % (Auto) 19.6 L Rooks % (Auto) 9.5 Eos % (Auto) 2.3 Baso % (Auto) 0.5 Neut # (Auto) 4300 Lymph # (Auto) 1200 Rooks # (Auto) 600 Eos # (Auto) 100 Baso # (Auto) 0 Blood Type O Positive Antibody Screen Negative PT 11.1 seconds INR 1.0 APTT 30 seconds Fibrinogen 302 mg/dL Evaluation Evaluation Baseline heart rate: 135 Variability: Moderate (11-25) monitor accelerations: Present Monitor Decelerations: Absent Contraction Frequency (minutes): 7 Uterine Contraction Intensity: Mild Category of Tracing: Reactive Status: Category l Cervical dilation (cm): 0 Diagnosis, Plan/Disposition Final Diagnosis (1) Third trimester bleeding: Status: Acute (2) Previous section complicating : Status: Acute (3) History of labor: Status: Acute (4) History of placental abnormality: Status: Acute Problem details: Present in first and second pregnancies (5) Systemic lupus complicating : Status: Acute (6) uterine contractions in third trimester, antepartum: Status: Acute Plan/Disposition Plan: 20-year-old at [place] 32+6 weeks with contractions and vaginal bleeding. Ultrasound with no evidence of active placental abruption or bleeding, borderline cervical length 2.6 cm, ZULEMA 16.6 cm, fetus in vertex position. Hemoglobin 11.5 CMP and coags normal, GBS pending. Patient discussed with Dr. Lynch ([facility]) who agrees to accept patient for transfer and given high-risk and threat of labor with contractions and vaginal bleeding. Administration of betamethasone was deferred per consulting physician recommendation until patient can be re-evaluated after transfer. OB Disposition: tertiary care transfer ([facility])
[2023-07-28 03:05] LABS: Prothrombin Time 11.1 SECONDS (9.4-12.5)
[2023-07-28 03:06] LABS: Fibrinogen 302 mg/dL (238-498)
[2023-07-28 03:12] LABS: Alanine Aminotransferase 12 IU/L (<35); Albumin 3.2 g/dL (3.5-5.0); Albumin Globulin Ratio 1.1 (1.0-2.8); Alkaline Phosphatase 98 U/L (38-126); Aspartate Aminotransferase 19 IU/L (14-36); Bilirubin Total 0.3 mg/dL (0.2-1.3); Blood Urea Nitrogen 6 mg/dL (7-17); Calcium 8.4 mg/dL (8.4-10.2); Carbon Dioxide 21 mmol/L (22-32); Chloride 110 mmol/L (98-107); Estimated Glomerular Filt Rate > 60 mL/min (>60); Globulin 2.8 g/dL (1.7-4.1); Glucose 99 mg/dL (70-100); HEMOLYSIS < 15 (0-50); Potassium 3.4 mmol/L (3.4-5.1); Sodium 134 mmol/L (137-145)
[2023-07-28 03:15] LABS: PTT Partial Thromboplastin Tim 30 SECONDS (25.1-36.5)
[2023-07-28 03:56] LABS: Strep Grp B PCR NEG for Grp B Strep
== END 2023-07-28 03:50 | disposition home or self-care (01) ==
LOC: LABOR 01:10
PROVIDERS: Admitting Provider Family Medicine; PCP Family Medicine; Referring Provider Family Medicine; Visit Provider Family Medicine
DX: O46.93 Antepartum hemorrhage, unspecified, third trimester (principal); O99.891 Other specified diseases and conditions complicating pregnancy; O47.03 False labor before 37 completed weeks of gestation, third trimester; M32.9 Systemic lupus erythematosus, unspecified; Z87.59 Personal history of other complications of pregnancy, childbirth and the puerperium; Z87.51 Personal history of pre-term labor; O34.219 Maternal care for unspecified type scar from previous cesarean delivery; Z3A.32 32 weeks gestation of pregnancy
CPT/HCPCS: 59025; 59050; 76815; 76817; 80053; 85025; 85384; 85610; 85730; 86850; 86900; 86901; 87081; 87653; 96360; 99235; G0378; G0379

== ENCOUNTER 2023-08-22 14:01 | Observation (INO) | payer OTHER, SELFPAY ==
--- NOTE | 2023-08-22 14:38 | PM.OBTRLD ---
Visit Information Visit Information Date of evaluation: 08/22/23 Primary OB Provider: Vane Gilbert Reason for Evaluation: Yes non-stress test non-stress test reason: other (bleeding) [facility] Medical History (Updated 07/28/23 @ 03:08 by Damián Corral MD) Myocarditis labor Pain in female genitalia on intercourse Rheumatoid arthritis (~2017) Skin tag Costochondritis Eye exam due to high risk medication, encounter for Fingernail abnormalities Tendinitis of right triceps Foot pain (~2018) Ovarian cyst (~2019) Migraine headache Anxiety (~2015) Leukopenia (~2015) Chest pain Human papilloma virus (~2013) Abnormal Pap smear of cervix (~2013) Hemorrhoid (~2015) Surgical History (Updated 07/06/23 @ 22:59 by Vane Gilbert MD) Delivery by section (~05/13/21) History of colposcopy (~2013) [place] teeth extracted (~2018) History of section (~09/25/16) Family History (Updated 01/25/23 @ 10:50 by Vibha Calle RN) Grandfather Lung cancer Stomach cancer Grandmother Fibromyalgia Grandfather History of heart artery stent Hyperlipidemia Hypertension Grandmother No problems noted. Mother Fibrocystic breast disease Father No problems noted. Sister Depression Chronic pain Social History marital status: number of children: 2 household members: spouse and children lives independently: Yes caregiver/support person: Yes housing: [facility] pets and animals: No education level: college (Associate's degree) occupational status: previously employed current occupational exposures/hazards: No special rosmery needs: No travel history: over 6 months ago other: Will be moving to [place] in June seatbelt use: always helmet use: Yes water heater temp set < 120 deg: Yes working smoke detector in home: Yes fire extinguisher in home: Yes carbon monox detector in home: Yes firearms in home: Yes firearms unloaded and locked: Yes do you feel safe at home: Yes Smoking Status: Never smoker second hand exposure: No alcohol intake: former (very rarely when not ) substance use type: does not use during the past year weight has: other (back to pre-baby weight) well-balanced diet: daily or most days daily servings fruits/ve-4 caffeine: Yes (1/2-1 cup coffee daily. ) Type(s) of exercise: weight lifting and yoga frequency: 3-4 times per week duration: 30-45 minutes/day Evaluation Evaluation Baseline heart rate: 125 Variability: Moderate (11-25) monitor accelerations: Present Monitor Decelerations: Absent Contraction Frequency (minutes): 0 Category of Tracing: Reactive Diagnosis, Plan/Disposition Plan/Disposition Plan: Assessment: 36+3 wks C/S sched for 08/26/23 Reactive NST Plan: F/U as sched for C/S
== END 2023-08-22 14:40 | disposition home or self-care (01) ==
LOC: LABOR 14:03
PROVIDERS: Admitting Provider Obstetrics & Gynecology; PCP Family Medicine; Referring Provider Obstetrics & Gynecology; Visit Provider Obstetrics & Gynecology
DX: O46.93 Antepartum hemorrhage, unspecified, third trimester (principal); Z3A.36 36 weeks gestation of pregnancy
CPT/HCPCS: 59025; G0378; G0379

== ENCOUNTER → 2023-08-24 08:49 | Outpatient (CLI) | payer OTHER, SELFPAY ==
--- NOTE | 2023-08-24 08:50 | DI.US.S_ITS ---
LIMITED ULTRASOUND OF LEFT BREAST: 08/24/2023 CLINICAL: Patient 36 weeks presenting with bilateral inner breast skin changes and palpable area of concern in the left breast retroareolar region. No prior exams were available for comparison. Color flow and real-time ultrasound of the left breast 1-2 o'clock and 9 o'clock regions were performed. There are oval circumscribed anechoic masses at 1 and 2 o'clock, 1 cm from the nipple corresponding to area of clinical palpable concern. Color flow imaging demonstrates no vascularity. There are similar appearing anechoic oval circumscribed masses at 9 o'clock, 6 centimeters from the nipple corresponding to area of skin changes. Color flow imaging demonstrates no vascularity. IMPRESSION: PROBABLY BENIGN Left breast multiple anechoic oval circumscribed masses corresponding to area of clinical concern at 1 and 2 o'clock position as well as 9 o'clock position. Findings are favored to represent simple cysts versus dilated ducts and are likely related to lactational changes. Findings are probably benign. Recommend short term follow-up left breast ultrasound in 4-6 weeks to demonstrate stability with possible mammogram at that time. Findings were discussed with the patient by Dr. Hinojosa at time of imaging completion. Patient was instructed to return sooner if clinical symptoms worsen in the interim. This exam was interpreted at Station ID: [id number]. Electronically Signed By: Katalina Hinojosa M.D., Ph.D. eb/:08/26/2023 23:03:50 letter sent: Followup Recommended Ultrasound BI-RADS: 3 Probably benign
== END ==
PROVIDERS: PCP Family Medicine; Referring Provider Obstetrics & Gynecology; Visit Provider Obstetrics & Gynecology
DX: O92.29 Other disorders of breast associated with pregnancy and the puerperium (principal); N63.25 Unspecified lump in the left breast, overlapping quadrants; N63.21 Unspecified lump in the left breast, upper outer quadrant; Z3A.36 36 weeks gestation of pregnancy
CPT/HCPCS: 76642

== ENCOUNTER 2023-08-24 19:28 | Observation (INO) | payer OTHER, SELFPAY | END 2023-08-24 20:00 | disposition home or self-care (01) | LOC: LABOR 19:29 | PROVIDERS: Admitting Provider Obstetrics & Gynecology; PCP Family Medicine; Referring Provider Obstetrics & Gynecology; Visit Provider Obstetrics & Gynecology | DX: O60.03 Preterm labor without delivery, third trimester (principal); Z3A.36 36 weeks gestation of pregnancy | CPT/HCPCS: 59025; 76642; G0378; G0379 ==